=== PATIENT | female | born 1990 | race Caucasian/White ===

== ENCOUNTER 2016-05-03 12:46 | Outpatient (CLI) | payer OTHER ==
--- NOTE | 2016-05-03 13:33 | Non Stress Test Report ---
Non Stress Test Datetime Report Generated by CPN: 05/03/2016 13:32 DEMOGRAPHIC EGA NST: 40.2 INDICATION Indication for Study: Ordered by Provider MONITORING Monitor Explained: Monitor Explained; Test Explained; Patient Verbalized Understanding Time on Monitor: 05/03/2016 12:57 Time off Monitor: 05/03/2016 13:27 NST Duration: 30 NST INTERVENTIONS NST Interventions: PO Hydration; Reposition Patient Physician Notified NST: Dr. Campos BABY A: [id number] BABY A Movement : Present Contraction Frequency : none FHR Baseline : 135 Accelerations : 15X15 Variability : Marked >25bpm NST Review: Meets Criteria for Reactive NST NST Review and Verified By : Ernestine EUGENE Results: Reactive NST REPORT Report Trigger: Send Report
== END 2016-05-03 13:34 | disposition home or self-care (01) ==
LOC: LC 12:46
PROVIDERS: ATTEND Obstetrics & Gynecology
PROC: 4A1HXCZ Monitoring of Products of Conception, Cardiac Rate, External Approach (ICD-10-PCS; principal; 2016-05-03)
DX: O48.0 Post-term pregnancy (principal); Z3A.40 40 weeks gestation of pregnancy
CPT/HCPCS: 59025

== ENCOUNTER 2016-05-06 04:06 | Inpatient (IN) | payer OTHER ==
[2016-05-06] MEDS ORDERED: RINGERS SOLUTION,LACTATED 1,000 ML IV PRN (04:34)
[2016-05-06] MEDS ORDERED: MISOPROSTOL 0.2 MG TABLET ONE (04:42)
[2016-05-06] MEDS ORDERED: OXYTOCIN/NORMAL SALINE 20 UNIT/1,000 ML RTUINJ ONE (04:42)
[2016-05-06] MEDS ORDERED: LIDOCAINE 1% INJ-PF (10 MG/ML) 30 ML SDV ONE (04:42)
[2016-05-06] MEDS ORDERED: BUPIVACAINE HCL 0.25 % INJ/PF (2.5 MG/1 ML) 30 ML VIAL ONE (04:46)
[2016-05-06] MEDS ORDERED: EPHEDRINE SULFATE INJ 50 MG/1 ML AMPULE ONE (04:46)
[2016-05-06] MEDS ORDERED: FENTANYL/BUPIVACAINE/NS/PF 200 MCG/100 ML RTUINJ EPI ONE (04:46)
[2016-05-06 05:18] LABS: ABSOLUTE BASOPHILS # (AUTO) 0.1 10^3/uL (0.0-0.2); ABSOLUTE EOSINOPHILS # (AUTO) 0.1 10^3/uL (0.0-0.6); ABSOLUTE LYMPHOCYTES (AUTO) 3.5 10^3/uL (0.5-4.7); ABSOLUTE MONOCYTES (AUTO) 1.1 10^3/uL (0.1-1.4); ABSOLUTE NEUT (AUTO) 12.8 10^3/uL (1.7-8.2); BASOPHILS % (AUTO) 0.3 % (0-2); EOSINOPHILS % (AUTO) 0.4 % (0-6); HEMATOCRIT 36.9 % (36.0-47.0); HEMOGLOBIN 12.4 g/dL (12.0-15.5); HGB HCT DIFFERENCE 0.3; MEAN CORPUSCULAR HEMOGLOBIN 30.2 pg (27.0-33.4); MEAN CORPUSCULAR HGB CONC 33.5 g/dL (32.0-36.0); MEAN CORPUSCULAR VOLUME 90 fl (80-97); MONOCYTES % (AUTO) 6.4 % (3-13); RED CELL DISTRIBUTION WIDTH 13.7 % (11.5-14.0); SEGMENTED NEUTROPHILS % (AUTO) 72.9 % (42-78); WHITE BLOOD COUNT 17.5 10^3/uL (4.0-10.5)
[2016-05-06] MEDS ORDERED: MEASLES,MUMPS&RUBELLA VACC/PF 0.5 ML VIAL SUBCUT PRN (05:54)
[2016-05-06] MEDS ORDERED: PROMETHAZINE HCL 25 MG SUPP.RECT PR PRN (05:54)
[2016-05-06] MEDS ORDERED: MAGNESIUM HYDROXIDE SUSP 30 ML UDCUP PO PRN (05:54)
[2016-05-06] MEDS ORDERED: BENZOCAINE/MENTHOL AEROSOL SPRAY 56 ML TOP PRN (05:54)
[2016-05-06] MEDS ORDERED: GLYCERIN/WITCH HAZEL LEAF 1 EACH MED..PAD TP PRN (05:54)
[2016-05-06] MEDS ORDERED: PSEUDOEPHEDRINE HCL 30 MG TABLET PO PRN (05:54)
[2016-05-06] MEDS ORDERED: PROMETHAZINE HCL INJ 25 MG/1 ML VIAL IV PRN (05:54)
[2016-05-06] MEDS ORDERED: DIBUCAINE 1% OINTMENT 28 GM TP PRN (05:54)
[2016-05-06] MEDS ORDERED: NA PHOS,M-B/NA PHOS,DI-BA (ADULT) 133 ML ENEMA PR PRN (05:54)
[2016-05-06] MEDS ORDERED: ACETAMINOPHEN 650 MG SUPP.RECT PR PRN (05:54)
[2016-05-06] MEDS ORDERED: ZOLPIDEM TARTRATE 5 MG TABLET PO PRN (05:54)
[2016-05-06] MEDS ORDERED: ACETAMINOPHEN WITH CODEINE #3 TABLET PO PRN ×2 (05:54)
[2016-05-06] MEDS ORDERED: DIPHENHYDRAMINE HCL 25 MG CAPSULE PO PRN (05:54)
[2016-05-06] MEDS ORDERED: PROMETHAZINE HCL 25 MG TABLET PO PRN (05:54)
[2016-05-06] MEDS ORDERED: DIPH/PERTUSS(ACELL)/TETANUS VAC/PF 0.5 ML SYR (>=10YO) IM PRN (05:54)
[2016-05-06] MEDS ORDERED: OXYTOCIN/NORMAL SALINE 20 UNIT/1,000 ML RTUINJ IV PRN (05:54)
--- NOTE | 2016-05-06 07:42 | Admission Physical ---
Datetime Report Generated by CPN: 05/06/2016 07:41 CURRENT ADMISSION Chief Complaint: Uterine Contractions; Suspected Ruptured Membranes Indication for Induction: Not Applicable Admit Plan: Admit to Unit; Initiate Labor Protocol ALLERGIES Medication Allergies: No Medication Allergies: No Known Allergies (05/03/2016) Latex: No Latex Allergies OBSTETRICAL HISTORY EDC: 05/01/2016 00:00 : 3 Para: 1 Term: 1 SAB: 1 Livin Gestational Diabetes: No Rh Sensitization: No Incompetent Cervix: No BOY: No Infertility: No ART Treatment: No Uterine Anomaly: No IUGR: No Hx Previous C/S: No Macrosomia: No Hx Loss/Stillborn: No PIH: No Hx : No Placenta Previa/Abruption: No Depression/PP Depression: Yes PTL/PROM: No Post Hemorrhage: No Current Procedures: Ultrasound; NST Obstetrical History Comments: G1: 2012 SAB G2: 2014 no complications G3: current SEE RECORDS Alcohol: No Marijuana : No Cocaine: No Other Illicit Drugs: No Cigarettes: Never Smoker. [id number] MEDICAL HISTORY Diabetes: No Blood Transfusion: No Pulmonary Disease (Asthma, TB): No Breast Disease: No Hypertension: No Medical Office Representative Surgery: No Heart Disease: No Hosp/Surgery: Yes Autoimmune Disorder: No Anesthetic Complications: No Kidney Disease: No Abnormal Pap Smear: No Neuro/Epilepsy: No Psychiatric Disorders: No Other Medical Diseases: No Hepatitis/Liver Disease: No Significant Family History: No Varicosities/Phlebitis: No Trauma/Violence : No Thyroid Dysfunction: No Medical History Comments: depression, childbirth INFECTIOUS HISTORY Gonorrhea: No Genital Herpes: No Chlamydia: Yes Tuberculosis: No Syphilis: No Hepatitis: No HIV/AIDS Exposure: No Rash or Viral Illness: No HPV: No Infectious History Comments: Chlamydia 15 or 16 years old- treated PHYSICAL EXAM General: Normal HEENT: Normal Neurologic: Normal Thyroid: Deferred Heart: Normal Lungs: Normal Breast: Deferred Back: Normal Abdomen: Normal Genitourinary Exam: Normal Extremities: Normal DTRs: Normal Pelvic Type: Adequate Vital Signs: Reviewed; Within Normal Limits VAGINAL EXAM Dilatation: 4 Effacement: 80 Station: -2 MEMBRANES Membranes: Ruptured Amniotic Fluid Color: Clear FETUS A EGA: 40.5 Monitoring: External US FHR- Baseline: 140 Variability: Moderate 6-25bpm Accelerations: 15X15 Decelerations: None FHR Category: Category I PLANS FOR LABOR AND DELIVERY Labor and Delivery: None Pain Management: Epidural Feeding Preference: Breast Benefit of Breast Feed Discussed: Yes Circumcision: Yes INFORMED CONSENT Signature: with User ID: [email or web address]
--- NOTE | 2016-05-06 07:54 | Delivery Summary ---
Del Sum A-C Datetime Report Generated by CPN: 05/06/2016 07:54 ADMISSION DATA Chief Complaint: Uterine Contractions; Suspected Ruptured Membranes Indication for Induction: Not Applicable Admission Impression: Term, Intrauterine ; No Active Labor; Ruptured Membranes DELIVERY PERSONNEL Delivery Doctor:: Vinny Campos, DO Labor and Delivery Nurse:: Tammy Elizondo RNaccreditation manager Nurse:: Sydney Burgess RN Manager Workers Compensation:: Ana Ramirez RN Nursery Nurse:: RN Hobbs MATERNAL INFORMATION Delivery Anesthesia: None Medications After Delivery: Pitocin Bolus-Please Comment Meds After Delivery Comment: Pitocin 20 units/1000 mL bolus after placenta Estimated Blood Loss (ml): 200 Maternal Complications: Precipitous Labor (<3hrs) Provider Comments: of viable malein NATALY position Placenta delievered manually and intact with 3v cord Fundus firm LABOR SUMMARY EDC: 05/01/2016 00:00 No. Babies in Womb: 1 Attempted: No Labor Anesthesia: None LABOR INFORMATION Reason for Induction: Not Applicable Onset of Labor: 05/06/2016 04:26 Complete Dilatation: 05/06/2016 05:27 Oxytocin: N/A Group B Beta Strep: negative Antibiotics # of Doses: 0 Antibiotics Time of Last Dose: n/a Steroids Given: None Reason Steroids Not Administered: Not Applicable MEMBRANES Membranes Rupture Method: Spontaneous Rupture of Membranes: 05/06/2016 05:05 Length of Rupture (hr): 0.40 Amniotic Fluid Color: Clear Amniotic Fluid Amount: Moderate Amniotic Fluid Odor: Normal STAGES OF LABOR Stage 1 hr: 1 Stage 1 min: 1 Stage 2 hr: 0 Stage 2 min: 2 Stage 3 hr: 0 Stage 3 min: 12 Total Time in Labor hr: 1 Total Time in Labor min: 15 VAGINAL DELIVERY Episiotomy: None Laceration Extension: First Degree Laceration Type: Perineal Other Laceration: skid hsu bilaterally periurethral Laceration Repair: Yes Laceration Repair Note: repaired with 2-0 chromic in usual fashion with good hemostasis Sponge Count Correct: N/A Sharps Count Correct: N/A CSECTION DELIVERY Primary Indication: N/A Secondary Indication: N/A CSection Incidence: N/A Labor: N/A Elective: N/A CSection Incision: N/A BABY A INFORMATION Infant Delivery Date/Time: 05/06/2016 05:29 Method of Delivery: Vaginal Born in Route : No : N/A Forceps: N/A Vacuum Extraction: N/A Shoulder Dystocia : No PRESENTATION/POSITION BABY A Presentation: Cephalic Cephalic Presentation: Vertex Vertex Position: Right Occipital Anterior Breech Presentation: N/A PLACENTA INFORMATION BABY A Placenta Delivery Time : 05/06/2016 05:41 Placenta Method of Delivery: Manual Removal Placenta Status: Delivered SCORES BABY A Heart Rate 1 min: >100 bpm Resp Effort 1 min: Good Cry Reflex Irritability 1 min: Cough or Sneeze or Pulls Away Muscle Tone 1 min: Active Motion Color 1 min: Blue/Pale Resuscitation Effort 1 min: Tactile Stimulation SCORE 1 MIN: 8 Heart Rate 5 min: >100 bpm Resp Effort 5 min: Good Cry Reflex Irritability 5 min: Cough or Sneeze or Pulls Away Muscle Tone 5 min: Active Motion Color 5 min: Blue/Pale Resuscitation Effort 5 min: Tactile Stimulation SCORE 5 MIN: 8 INFORMATION BABY A Gestational Age at Delivery: 40.5 Gestational Status: Full Term- 39- 40.6 Weeks Infant Outcome : Liveborn Infant Condition : Stable Infant Sex: Male IDENTIFICATION BABY A Verification Date/Time: 05/06/2016 05:55 ID Band Number: [id number] Mother's Name Verified: Yes Infant RN Verifying Infant: K Caro RN/ C [place] RN WEIGHT/LENGTH BABY A Birthweight (gm): 3695 Weight (lb): 8 Infant Weight (oz): 2 Infant Length (in): 20.00 Length (cm): 50.80 CORD INFORMATION BABY A No. Cord Vessels: 3 Nuchal Cord : N/A Cord Blood Taken: Yes-For Eval (Mom's Blood Type - or O+) Suction: Mouth; Nose ASSESSMENT BABY A Complications: Multiple Variable Decels Physical Findings at Delivery: Within Normal Limits Physical Findings- Other: oxygen 100%, pale on assessment Infant Respirations: Appears Normal Skin to Skin: Yes Skin to Skin Time (min): 30 Art Display Maker/ALS Called : No Infant Care By: Domenic Elizondo RN/ Holley Burgess RN Transferred To: Remains with Mother SIGNATURES Signature: with User ID: [email or web address]
--- NOTE | 2016-05-06 08:00 | L&D Flow Sheet ---
LD Flowsheet Datetime Report Generated by CPN: 05/06/2016 08:00 Datetime: 05/06/2016 06:30 Pain Presence: None/Denies (Tammy Elizondo, RN) Datetime: 05/06/2016 05:58 NBP Sys/Marilin/Mean (mmHg): 124 (QS system process) : 87 (QS system process) : 101 (QS system process) Pulse: 97 (QS system process) Respirations: 15 (Tammy Caro, RN) Temperature (F): 97.9 (Tammy Simonsl, RN) Temperature (C): 36.6 (QS system process) Temperature Route: Oral (Tammy Caro, RN) Datetime: 05/06/2016 05:45 Stage of : Recovery (Sydney Margaann, RN) Datetime: 05/06/2016 05:40 Stage of : Recovery (Sydney Sabinasmann, RN) Datetime: 05/06/2016 05:31 Stage of : Recovery (Tammycruz Elizondo, RN) Datetime: 05/06/2016 05:29 Monitor Mode: External; Palpation (Allie Bj, RN) Quality: Strong (Allie Bj, RN) Resting Tone (Palpate): Relaxed (Allie Bj, RN) Contraction Comments: unable to determine frequency and duration (Allie Bj, RN) Monitor Mode: Internal Scalp Electrode (Allie Bj, RN) FHR Baseline Rate : 145 (Allie Bj, RN) Variability: Moderate 6-25 bpm (Allie Bj, RN) Accelerations: None (Allie Bj, RN) Decelerations: Variable (Allie Bj, RN) Comments: RN remains at bedside adjusting u/s continously monitoring FHT (Allie Bj, RN) Datetime: 05/06/2016 05:27 Dilatation (cm): 10.0 (Sydney Burgess RN) Effacement (%): 100 (Sydney Burgess RN) Station: 2 (Sydney Burgess RN) Exam by: Dr Campos (Sydney Burgess RN) Pushing: Coached on Pushing; Urge to Push (Sydney Burgess RN) Pushing Position: Pushing with Contractions (Sydney Burgess RN) Pushing Progress: Descent with Pushing; Perineal Bulging; Rectal Bulging; Presenting Part Visible (Sydney Burgess RN) Datetime: 05/06/2016 05:26 Communication Comments: Nursery called to bedside for delivery (Allie Bj, RN) Datetime: 05/06/2016 05:23 Communication Comments: Dr Campos at bedside (Tammy Elizondo, RN) Datetime: 05/06/2016 05:20 Actions for Decelerations: Hands and Knees (Tammy Elizondo RN) Dilatation (cm): 8.0 (Sydney Burgess RN) Effacement (%): 100 (Sydney Burgess RN) Station: 2 (Sydney Burgess RN) Exam by: VERONCIA Elizondo (Sydney Burgess RN) Patient Position/Activity: Hands-Knees (Tammy Elizondo RN) Pushing: Urge to Push; Involuntary Pushing (Tammy Elizondo RN) Datetime: 05/06/2016 05:15 Monitor Mode: External; Palpation (Allie Lorenzo RN) Frequency (min): 1.5-2.5 (Allie Lorenzo RN) Quality: Strong (Allie Lorenzo RN) Duration (sec): 50-60 (Allie Lorenzo RN) Duration Criteria: Less than Two 120 Second Contractions (Allie Lorenzo RN) Pattern: Normal: <= 5 Contractions in 10 Minutes (Allie Lorenzo RN) Resting Tone (Palpate): Relaxed (Allie Lorenzo RN) Monitor Interventions for FHR: FSE Applied (Sydney Burgess RN) Decelerations: Late; Variable; Prolonged (Tammy Elizondo RN) Actions for Decelerations: Side to Side; Oxygen Applied; IV Bolus; Sterile Vaginal Exam; Provider Reviewed Strip; Provider Notified (Sydney Burgess RN) Actions for Decelerations: Hands and Knees; Oxygen Applied; IV Bolus; Provider Reviewed Strip (Sydney Burgess RN) Comments: VERONICA meadows remains at bedside adjusting u/s continously monitoring FHT (Allie Lorenzo, VERONICA) Dilatation (cm): 8.0 (Sydney Burgess RN) Exam by: Dr Campos (Sydney Burgess RN) Patient Position/Activity: Hands-Knees (Sydney Burgess RN) Datetime: 05/06/2016 05:14 Actions for Decelerations: Provider Reviewed Strip (Tammy Elizondo RN) Actions for Decelerations: Side to Side (Sydney Burgess RN) Patient Position/Activity: Right Lateral (Sydney Burgess RN) Communication: Provider at Bedside (Tammy Elizondo RN) Communication Comments: Dr Toney at bedside, updated on pt progress. Will update Dr Toney if pt/ are able to tolerate epidural procedure (Tammy Elizondo RN) Communication Comments: Dr Campos at bedside (Tammy Elizondo RN) Datetime: 05/06/2016 05:12 Actions for Decelerations: Side to Side (Sydney Sabinasmann, RN) Datetime: 05/06/2016 05:11 Pulse: 89 (QS system process) SpO2 (%): 98 (QS system process) Communication Comments: Dr. Campos at bedside (Allie Bj, RN) Datetime: 05/06/2016 05:09 Actions for Decelerations: Side to Side (Tammy Elizondo RN) Comments: FHR auscultated in 70s-90s. RN remains at bedside adjusting u/s (Tammy Elizondo RN) Communication Comments: Dr. Campos called to bedside (Allie Bj, RN) Datetime: 05/06/2016 05:07 Comments: VERONICA Elizondo remains at bedside adjusting u/s (Allie Lorenzo, VERONICA) Datetime: 05/06/2016 05:06 Dilatation (cm): 7.0 (Tammy Elizondo RN) Exam by: RN Caro (Tammy Elizondo RN) Datetime: 05/06/2016 05:05 Membrane Status: Ruptured (Tammy Elizondo RN) Membranes Ruptured Date/Time: 05/06/2016 05:05 (Tammy Elizondo RN) Membranes Rupture Method: Spontaneous (Tammy Elizondo RN) Amniotic Fluid Color: Clear (Tammy Caro, RN) Amniotic Fluid Amount: Moderate (Tammy Crao, RN) Amniotic Fluid Odor: Normal (Tammy Caro, RN) Membrane Comments: bloody show mixed in fluid (Tammy Steinersel, RN) Datetime: 05/06/2016 05:04 Patient Position/Activity: Right Tilt (Tammy Steinersel, RN) Datetime: 05/06/2016 05:03 IV/Blood Work: Labs Drawn (Tammy Steinersel, RN) Datetime: 05/06/2016 05:02 Anesthesia Comments: Dr. Toney aware of epidural request, MD in route, IVF bolusing (Sydney Burgess, RN) Datetime: 05/06/2016 05:01 Comments: VERONICA Angelita Elizondo remains at bedside adjusting u/s continously monitoring FHT (Allie Bj, RN) Datetime: 05/06/2016 05:00 Monitor Mode: External; Palpation (Allie Bj, RN) Frequency (min): 1.5-2 (Allie Bj, RN) Quality: Strong (Allie Bj, RN) Duration (sec): 30-70 (Allie Bj, RN) Duration Criteria: Less than Two 120 Second Contractions (Allie Bj, RN) Pattern: Normal: <= 5 Contractions in 10 Minutes (Allie Bj, RN) Resting Tone (Palpate): Relaxed (Allie Bj, RN) Monitor Mode: External US (Allie Bj, RN) FHR Baseline Rate : 155 (Allie Bj, RN) Variability: Moderate 6-25 bpm (Allie Bj, RN) Accelerations: None (Allie Bj, RN) Decelerations: Variable (Allie Bj, RN) Comments: RN KDavid SteinerCaro remains at bedside adjusting u/s continously monitoring FHT (Allie Bj, RN) Datetime: 05/06/2016 04:59 Comments: RN K. Caro at bedside adjusting u/s coninuously monitoring FHT (Allie Bj, RN) Datetime: 05/06/2016 04:57 Patient Position/Activity: Standing (Tammy Caro, RN) Patient Care Comments: Pt standing, swaying with ctx (Tammy Caro, RN) Datetime: 05/06/2016 04:54 IV/Blood Work: IV Started; IV Bolus Started (Tammy Caro, RN) Patient Care Comments: 18 g started R forearm third attempt pt tolerated well (Tammy Caro, RN) Datetime: 05/06/2016 04:51 Procedures: Consents Signed (Tammy Caro, RN) Datetime: 05/06/2016 04:49 NBP Sys/Marilin/Mean (mmHg): 123 (QS system process) : 79 (QS system process) : 95 (QS system process) Pulse: 82 (QS system process) Datetime: 05/06/2016 04:45 Monitor Mode: External; Palpation (Allie Bj, RN) Frequency (min): 1.5-5 (Allie Bj, RN) Quality: Moderate to Strong (Allie Bj, RN) Duration (sec): 40-80 (Allie Bj, RN) Duration Criteria: Less than Two 120 Second Contractions (Allie Bj, RN) Pattern: Normal: <= 5 Contractions in 10 Minutes (Allie Bj, RN) Resting Tone (Palpate): Relaxed (Allie Bj, RN) Monitor Mode: External US (Allie Bj, RN) FHR Baseline Rate : 145 (Allie Bj, RN) Variability: Moderate 6-25 bpm (Allie Bj, RN) Accelerations: None (Allie Bj, RN) Decelerations: Early (Allie Bj, RN) Datetime: 05/06/2016 04:28 Communication Comments: Dr. Campos notified of SVE and assessment. Orders received for admission. (Allie Bj, RN) Datetime: 05/06/2016 04:26 Dilatation (cm): 4.5 (Allie Lorenzo RN) Exam by: Angelita Elizondo RN (Allie Lorenzo RN)
[2016-05-06] MEDS: IBUPROFEN 800 MG TABLET PO SCH ×3 (08:30→21:39)
[2016-05-06] MEDS: SENNOSIDES/DOCUSATE 8.6-50 MG 1 EACH TABLET PO SCH (09:32)
[2016-05-06] MEDS: PRENATAL VITAMIN W-O CA NO5/FE FUMARATE/FA CAPSULE PO SCH (09:32)
[2016-05-06] MEDS: FERROUS SULFATE 325 MG TABLET PO SCH ×2 (09:32→17:20)
[2016-05-06] MEDS: DOCUSATE SODIUM 100 MG CAPSULE PO SCH ×2 (09:32→17:20)
[2016-05-06] MEDS: FAMOTIDINE 20 MG TABLET PO SCH ×2 (09:33→21:39)
[2016-05-06 14:53] LABS: APPEARANCE,URINE CLEAR; BILIRUBIN,URINE NEGATIVE (NEGATIVE); GLUCOSE, URINE NEGATIVE (NEGATIVE); KETONES,URINE NEGATIVE (NEGATIVE); LEUKOCYTE ESTERASE,URINE TRACE (NEGATIVE); NITRITE,URINE NEGATIVE (NEGATIVE); PROTEIN,URINE NEGATIVE (NEGATIVE); URINE SPECIFIC GRAVITY 1.004; UROBILINOGEN,URINE NEGATIVE mg/dL (<2.0)
[2016-05-06 15:16] LABS: URINE BARBITURATES SCREEN NEGATIVE; URINE METHADONE SCREEN NEGATIVE; URINE OPIATES LOW NEGATIVE; URINE PHENCYCLIDINE SCREEN NEGATIVE
--- NOTE | 2016-05-06 19:01 | L&D Flow Sheet ---
LD Flowsheet Datetime Report Generated by CPN: 05/06/2016 19:00 Datetime: 05/06/2016 07:15 Stage of : Recovery (Karen Hassan RN)
[2016-05-07] MEDS: IBUPROFEN 800 MG TABLET PO SCH ×3 (05:13→21:10)
--- NOTE | 2016-05-07 06:01 | L&D Current Admission ---
Current Admit Datetime Report Generated by CPN: 05/07/2016 06:00 ADMISSION INFORMATION Current Admit Date/Time: 05/06/2016 04:15 (05/06/2016 04:15:Tammy Elizondo RN) Reason for Admission: Onset of Labor (05/06/2016 04:15:Tammy Elizondo RN) Chief Complaint: Contractions (05/06/2016 04:15:Tammy Elizondo RN) Medications During : Vitamin (05/06/2016 04:15:Tammy Elizondo RN) EGA per Dates: 40.5 (05/06/2016 04:15:QS system process) Method of Arrival: Wheelchair (05/06/2016 04:15:Tammy Elizondo RN) Admitted From: Home (05/06/2016 04:15:Tammy Elizondo RN) Reason for Induction: Not Applicable (05/06/2016 04:15:Tammy Elizondo RN) Records Available: Yes (05/06/2016 04:15:Tammy Elizondo RN) General Admission Information: Reviewed; Updated; Confirmed (05/06/2016 04:15:Tammy Elizondo RN) General Admission Reviewed By: Domenic Elizondo RN (05/06/2016 04:15:Tammy Elizondo RN) BELONGINGS/ADVANCED DIRECTIVES Other Belongings: See [facility] belongings form (05/06/2016 04:15:Tammy Elizondo RN) Advance Direct for Healthcare: No, but Requests Information (05/06/2016 04:15:Tammy Elizondo RN) Durable Power of Sorter Pricer: No (05/06/2016 04:15:Tammy Elizondo RN) Living Will: No (05/06/2016 04:15:Tammy Elizondo RN) Organ Donor: Undecided (05/06/2016 04:15:Tammy Elizondo RN) Pt Rights Information Given: Yes (05/06/2016 04:15:Tammy Elizondo RN) Pt Understands Pt Rights: Yes (05/06/2016 04:15:Tammy Elizondo RN) LEARNING ASSESSMENT Knowledge Level: Understands L_D Process; Understands Care Activities (05/06/2016 04:15:Tammy Elizondo RN) Barriers to Learning: Emotional State; Pain (05/06/2016 04:15:Tammy Elizondo RN) Learning Readiness: Motivated (05/06/2016 04:15:Tammy Elizondo RN) Learns Best By: 1 to 1 Instruction (05/06/2016 04:15:Tammy Elizondo RN) Learning Needs: Labor and Delivery Process; Pain Management; Symptoms to Report; Treatment Plan; Medication; Diagnosis; Nutrition; Equipment; Care (05/06/2016 04:15:Tammy Elizondo RN) DOMESTIC VIOLANCE SCREENING Reason Unable to Complete Screen: No Opportunity to Talk Privately (05/06/2016 04:15:Tammy Elizondo RN) NUTRITIONAL/FUNCTIONAL SCREENING Problem with Appetite >5 Days: No (05/06/2016 04:15:Tammy Elizondo RN) Chew/Swallow Difficulties: No (05/06/2016 04:15:Tammy Elizondo RN) Inappropriate Wt Gain/Loss: No (05/06/2016 04:15:Tammy Elizondo RN) Presence Skin Breakdown/Ulcer: No (05/06/2016 04:15:Tammy Elizondo RN) Special Diet: No (05/06/2016 04:15:Tammy Elizondo RN) Pt Requests Access Services Representative Visit: No (05/06/2016 04:15:Tammy Elizondo RN) Hx of Any of the Following?: N/A (05/06/2016 04:15:Tammy Elizondo RN) New Diagnosis of: N/A (05/06/2016 04:15:Tammy Elizondo RN) Requires Assist w/Ambulation: No (05/06/2016 04:15:Tammy Eliozndo RN) Uses Assist Device to Ambulate: No (05/06/2016 04:15:Tammy Elizondo RN) Pt Requires Help w/ADL's: No (05/06/2016 04:15:Tammy Elizondo RN)
--- NOTE | 2016-05-07 06:01 | L&D General Admission ---
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[employer] [facility] (05/03/2016 12:56:Karen Hassan RN) Height (in): 67 (05/06/2016 08:32:QS system process) ALLERGIES Medication Allergy: No (05/03/2016 12:56:Karen Hassan RN) Medication Allergies: No Known Allergies (05/03/2016) (05/03/2016 12:57:QS system process) Latex Allergy: No Latex Allergies (05/03/2016 12:56:Karen Hassan RN) COMMUNICATION Primary Language: Trinidadian (05/03/2016 12:56:Karen Hassan RN) Trinidadian Communication Ability: Speaks Trinidadian; Reads Trinidadian (05/03/2016 12:56:Allie Lorenzo RN) Communication Barrier(s): None (05/03/2016 12:56:Allie Lorenzo RN) DEMOGRAPHICS Address: [address] [place] [id number] (05/03/2016 12:46:QS system process) Zipcode: [id number] (05/03/2016 12:46:QS system process) Home (05/03/2016 12:46:QS system process) SSN: [id number] (05/03/2016 12:46:QS system process) Next of Kin Name: LIZY QUICK (05/03/2016 12:46:QS system process) Next of Kin (05/03/2016 12:46:QS system process) Next of Kin Relationship: SPO (05/03/2016 12:46:QS system process) Date of : 1990 (05/03/2016 12:46:QS system process) Marital Status: (05/03/2016 12:46:QS system process) Sex: Female (05/03/2016 12:46:QS system process) Race: (05/03/2016 12:46:QS system process) Ethnicity: Non- or (05/03/2016 12:46:QS system process) Restorationist: Other (05/03/2016 12:46:QS system process) DRUG AND ALCOHOL USE Alcohol: No (05/03/2016 12:56:Karen Hassan RN) Cigarettes: Never Smoker. [id number] (05/03/2016 12:56:Karen Hassan RN) Marijuana: No (05/03/2016 12:56:Karen Hassan RN) Cocaine: No (05/03/2016 12:56:Karen Hassan RN) Other Illicit Drugs: No (05/03/2016 12:56:Karen Hassan RN) VACCINE HISTORY Influenza Vaccine: No (05/03/2016 12:56:Karen Hassan RN) Pneumococcal Vaccine: No (05/03/2016 12:56:Karen Hassan RN) Tetanus Vaccine: No (05/03/2016 12:56:Karen Hassan RN) Tdap Vaccine: No (05/03/2016 12:56:Karen Hassan RN) Hepatitis B Vaccine: No (05/03/2016 12:56:Karen Hassan RN) Burning Machine Operator: [facility] (05/03/2016 12:56:Karen Hassan RN) Feeding Preference: Breast (05/03/2016 12:56:Karen Hassan RN) Benefit of Breast Feed Discussed: Yes (05/03/2016 12:56:Karen Hassan RN) Circumcision: Yes (05/03/2016 12:56:Karen Hassan RN) Classes Attended: No (05/03/2016 12:56:Karen Hassan RN) Tubal Ligation: No (05/03/2016 12:56:Karen Hassan RN) Tubal Authorization Signed: N/A (05/03/2016 12:56:Karen Hassan RN) Consent: N/A (05/03/2016 12:56:Karen Hassan RN) Pain Management Plans: Epidural (05/03/2016 12:56:Karen Hassan RN) Plans for Labor and Delivery: None (05/03/2016 12:56:Karen Hassan RN) Support Person: Lizy Quick (05/03/2016 12:56:Karen Hassan RN) Support Person Relationship: (05/03/2016 12:56:Karen Hassan RN) Cultural/Spritual Practice: No (05/03/2016 12:56:Karen Hassan RN) Spir/Cult Dietary Needs: No (05/03/2016 12:56:Karen Hassan RN) LIVING SITUATION/DISCHARGE PLAN Living Arrangements: House (05/03/2016 12:56:Karen Hassan RN) Adequate Access to:: Electric; Heat; Refrigeration; Plumbing/Running water; Phone; Transportation (05/03/2016 12:56:Karen Hassan RN) WIC Program: Yes (05/03/2016 12:56:Karen Hassan RN) Discharge Filler Shredder Machine Person: FONitza (05/03/2016 12:56:Karen Hassan RN) Person to Help after Discharge: FOB (05/03/2016 12:56:Karen Hassan RN) Currently Using Commun Resources: No (05/03/2016 12:56:Karen Hassan RN) Outside Agency/Senior Instructional Designer: No (05/03/2016 12:56:Karen Hassan RN) Car Seat for Discharge: Yes (05/03/2016 12:56:Karen Hassan RN) Adoption Requested: No (05/03/2016 12:56:Karen Hassan RN) Pt Contact w/ Post : N/A (05/03/2016 12:56:Karen Hassan RN) LABS Blood Type: O Negative (05/03/2016 12:56:Allie Lorenzo RN) Antibody Screen: negative (05/03/2016 12:56:Tammy Elizondo RN) Hemoglobin: 12.4 (05/06/2016 05:06:QS system process) Hematocrit: 36.9 (05/06/2016 05:06:QS system process) MCV: 90 (05/06/2016 05:06:QS system process) Group Beta Strep: negative (05/03/2016 12:56:Allie Lorenzo RN) Gonorrhea: Negative (05/03/2016 12:56:Allie Lorenzo RN) Chlamydia: Negative (05/03/2016 12:56:Allie Lorenzo RN) RPR/VDRL: Nonreactive (05/03/2016 12:56:Allie Lorenzo RN) HIV Exposure Test: Negative (05/03/2016 12:56:Allie Lorenzo RN) Hepatitis B: Negative (05/03/2016 12:56:Allie Lorenzo RN) Rubella: Immune (05/03/2016 12:56:Allie Lorenzo RN) OB/PREVIOUS HISTORY Previous Procedures: Ultrasound; NST (05/03/2016 12:56:Karen Hassan RN) Current Procedures: Ultrasound; NST (05/03/2016 12:56:Karen Hassan RN) History of Previous : No (05/03/2016 12:56:Karen Hassan RN) History of Gestational Diabetes: No (05/03/2016 12:56:Karen Hassan RN) History of PIH: No (05/03/2016 12:56:Karen Hassan RN) History of Incompetent Cervix: No (05/03/2016 12:56:Karen Hassan RN) History of Placenta Previa/Abrup: No (05/03/2016 12:56:Karen Hassan RN) History of Macrosomia: No (05/03/2016 12:56:Karen Hassan RN) History of IUGR: No (05/03/2016 12:56:Karen Hassan RN) History of Hemorrhage: No (05/03/2016 12:56:Karen Hassan RN) History of Loss/Stillborn: No (05/03/2016 12:56:Karen Hassan RN) History of : No (05/03/2016 12:56:Karen Hassan RN) History of D (Rh) Sensitization: No (05/03/2016 12:56:Karen Hassan RN) History Recurrent Loss/Stillborn: No (05/03/2016 12:56:Karen Hassan RN) History Depression/PP Depression: Yes (05/03/2016 12:56:Karen Hassan RN) History of Uterine Anomaly/BOY: No (05/03/2016 12:56:Karen Hassan RN) History of Infertility: No (05/03/2016 12:56:Karen Hassan RN) History of ART Treatment: No (05/03/2016 12:56:Karen Hassan RN) History of BOY: No (05/03/2016 12:56:Karen Hassan RN) Comments Obstetrical History: G1: 2012 SAB G2: 2014 no complications G3: current (05/03/2016 12:56:Karen Hassan RN) MEDICAL HISTORY Med Hx Diabetes: No (05/03/2016 12:56:Karen Hassan RN) Med Hx Hypertension: No (05/03/2016 12:56:Karen Hassan RN) Med Hx Heart Disease: No (05/03/2016 12:56:Karen Hassan RN) Med Hx Autoimmune Disorder: No (05/03/2016 12:56:Karen Hassan RN) Med Hx Kidney Disease/UTI: No (05/03/2016 12:56:Karen Hassan RN) Med Hx Neurologic/Epilepsy: No (05/03/2016 12:56:Karen Hassan RN) Med Hx Psychiatric Disorders: No (05/03/2016 12:56:Karen Hassan RN) Med Hx Hepatitis/Liver Disease: No (05/03/2016 12:56:Karen Hassan RN) Med Hx Varicosities/Phlebitis: No (05/03/2016 12:56:Karen Hassan RN) Med Hx Thyroid Dysfunction: No (05/03/2016 12:56:Karen Hassan RN) Med Hx Trauma/Violence: No (05/03/2016 12:56:Karen Hassan RN) Med Hx Blood Transfusion: No (05/03/2016 12:56:Karen Hassan RN) Med Hx Pulmonary (Asthma,TB): No (05/03/2016 12:56:Karen Hassan RN) Med Hx Breast: No (05/03/2016 12:56:Karen Hassan RN) Med Hx FINANCIAL ACCOUNTANT Surgery: No (05/03/2016 12:56:Karen Hassan RN) Med Hx Hospitalization/Surgery: Yes (05/03/2016 12:56:Karen Hassan RN) Med Hx Anesthetic Complications: No (05/03/2016 12:56:Karen Hassan RN) Med Hx Abnormal Pap Smear: No (05/03/2016 12:56:Karen Hassan RN) Other Medical Diseases: No (05/03/2016 12:56:Karen Hassan RN) Med Hx Significant Family Hx: No (05/03/2016 12:56:Karen Hassan RN) Details of Med/Surg Hx: depression, childbirth (05/03/2016 12:56:Karen Hassan RN) INFECTIOUS HISTORY Inf Hx Gonorrhea: No (05/03/2016 12:56:Karen Hassan RN) Inf Hx Chlamydia: Yes (05/03/2016 12:56:Karen Hassan RN) Inf Hx Syphilis: No (05/03/2016 12:56:Karen Hassan RN) Inf Hx HIV/AIDS: No (05/03/2016 12:56:Karen Hassan RN) Inf Hx Human Papilloma Virus: No (05/03/2016 12:56:Karen Hassan RN) Inf Hx Pt/Partner Genital Herpes: No (05/03/2016 12:56:Karen Hassan RN) Inf Hx Tuberculosis/Exposure: No (05/03/2016 12:56:Karen Hassan RN) Inf Hx Hepatitis B,C: No (05/03/2016 12:56:Karen Hassan RN) Inf Hx Rash or Viral Illness: No (05/03/2016 12:56:Karen Hassan RN) Details of Infectious Hx: Chlamydia 16 or 17 years old- treated (05/03/2016 12:56:Karen Hassan RN) GENETIC HISTORY Gen Hx Age >=35 at ZEN: No (05/03/2016 12:56:Karen Hassan RN) Gen Hx Thalassemia: No (05/03/2016 12:56:Karen Hassan RN) Gen Hx Congenital Heart Defect: No (05/03/2016 12:56:Karen Hassan RN) Gen Hx Neural Tube Defect: No (05/03/2016 12:56:Karen Hassan RN) Gen Hx Down's Syndrome: No (05/03/2016 12:56:Karen Hassan RN) Gen Hx Sohail-Sachs: No (05/03/2016 12:56:Karen Hassan RN) Gen Hx Noni: No (05/03/2016 12:56:Karen Hassan RN) Gen Hx Familial Dysautonomia: No (05/03/2016 12:56:Karen Hassan RN) Gen Hx Sickle Cell Disease/Trait: No (05/03/2016 12:56:Karen Hassan RN) Gen Hx Hemophilia/Blood Disorder: No (05/03/2016 12:56:Karen Hassan RN) Gen Hx Muscular Dystrophy: No (05/03/2016 12:56:Karen Hassan RN) Gen Hx Cystic Fibrosis: No (05/03/2016 12:56:Karen Hassan RN) Gen Hx Huntingtons Chorea: No (05/03/2016 12:56:Karen Hassan RN) Gen Hx Mental Retardation/Autism: Yes (05/03/2016 12:56:Karen Hassan RN) Gen Hx Tested for Fragile X: No (05/03/2016 12:56:Karen Hassan RN) Gen Hx Other Inher/Chromosomal: No (05/03/2016 12:56:Karen Hassan RN) Gen Hx Maternal Metabolic DO: No (05/03/2016 12:56:Karen Hassan RN) Gen Hx Pt Father or FOB Defect: No (05/03/2016 12:56:Karen Hassan RN) Gen Hx Other Genetic History: No (05/03/2016 12:56:Karen Hassan RN) Gen Hx Drugs/Meds since LMP: Yes (05/03/2016 12:56:Karen Hassan RN) Gen Hx Medications: PNV (05/03/2016 12:56:Karen Hassan RN) Details of Genetic History: FOB brother autistic, maternal grandfather's brother autistic (05/03/2016 12:56:Karen Hassan RN)
--- NOTE | 2016-05-07 06:16 | L&D Care Plan ---
LD CARE PLANS Datetime Report Generated by TERRENCE: 05/07/2016 06:15 Datetime: 05/06/2016 04:36 State: Risk For (Allie Lorenzo RN) Related To: Labor and Delivery Process; Surgical Procedure; Complication(s) of ; Treatment and Procedures; Post (Allie Lorenzo RN) Goal(s): Patients Pain will be Assessed and Managed; Patient will Verbalize Adequate Relief of Pain or the Ability to Lane with Current Pain (Allie Lorenzo RN) Interventions: Assess Pain Severity on Scale of 0 (None) to 5 (Severe); Assess Type, Location and Intensity of Pain Each Time Client Reports Discomfort and Notify Provider if Unusal Pain Develops; Encourage Proper Breathing and Relaxation Techniques; Offer Alternatives Such as Repositioning, Calm Environment, Massages, Diversional Activities, Ice Pack, Splinting, and Ambulation; Administer Analgesics as Ordered; Assist with Epidural Placement as Appropriate; Evaluate Therapeutic Effectiveness of Medication and Treatments (Allie Lorenzo RN) Outcome: Patient will Report Absence or Relief of Pain Consistent with Established Pain Goal (Allie Lorenzo RN) Status: Ongoing (Allie Lorenzo RN) Outcome: Patient will have a Decrease in Signs and Symptoms of Discomfort (Allie Lorenzo RN) Status: Ongoing (Allie Lorenzo RN) Outcome: Pain will be Controlled During Procedures (Allie Lorenzo RN) Status: Ongoing (Allie Lorenzo RN) State: Risk For (Allie Lorenzo RN) Related To: Labor and Delivery Process; Surgical Procedure; Fear of Unknown; Medical Interventions (Allie Lorenzo RN) Goal(s): Patient will have Decreased Anxiety and be able to Function at Acceptable Levels (Allie Lorenzo RN) Interventions: Assess Verbal and Nonverbal Behavioral Indicators of Anxiety; Assist Patient to Identify and Verbalize Symptoms of Anxiety; Identify and Demonstrate Techniques to Control Anxiety; Assist Patient with Coping Mechanisms to Manage Anxiety; Provide Theraputic Touch for the Patient; Explain to Patient, Using a Calm Reassuring Approach and Nonmedical Terms, All Activities, Procedures, and Concerns; Instruct Patient and Family about Post Discharge Care, Limitations, Symptoms to Report and Resources Available (Allie Lorenzo RN) Outcome: Patient will Identify, Verbalize and Demonstrate Techniques to Control Anxiety (Allie Lorenzo RN) Status: Ongoing (Allie Lorenzo RN) Outcome: Patient's Posture, Facial Expressions, Gestures and Activity Level will Reflect Decreased Anxiety (Allie Lorenzo RN) Status: Ongoing (Allie Lorenzo RN) Outcome: Patient will Verbalize a Sense of Control and/or Acceptance of the Situation (Allie Lorenzo RN) Status: Ongoing (Allie Lorenzo RN) Outcome: Patient will Identify and Utilize Support Person (Allie Lorenzo RN) Status: Ongoing (Allie Lorenzo RN) State: Risk For (Allie Lorenzo RN) Related To: Labor and Delivery Process; Surgical Procedures; Treatment and Procedures; Feeding and Infant Care (Allie Lorenzo RN) Goal(s): Patient will Accurately Verbalize Understanding of Plan of Care and Treatment; Patient and Family will Accurately Verbalize Understanding of the Disease Process (Allie Lorenzo RN) Interventions: Assess Motivation and Willingness of Patient/Family to Learn; Assess Preferred Learning Mode: One to One Instruction, Reading, Videos, Group Discussion or Demonstration; Assess Barriers to Learning: Pain, Emotional State, Language Barrier, Cognitive Impairment, Visual or Hearing Deficits; Assess Patient and Family Knowledge of Disease Process, Medications and Treatment; Discuss Therapy and/or Treatment Options, Describe Rationale Behind Management, Therapy and Treatment Recommendations; Instruct Patient and Family on Signs and Symptoms to Report; Instruct Patient and Family on Medication Effects and Side Effects; Provide Appropriate and Timely Education Using Multiple Techniques; Provide Patient and Family with Support Group Information and Resources; Give Clear and Thorough Explanations and Demonstrations (Allie Lorenzo RN) Outcome: Patient and Family will Verbalize Understanding of Condition, Treatment and Signs and Symptoms to Report (Allie Lorenzo RN) Status: Ongoing (Allie Lorenzo RN) Outcome: Patient will Identify Perceived Learning Needs and Express Motivation to Learn (Allie Lorenzo RN) Status: Ongoing (Allie Lorenzo RN) Outcome: Patient will Verbalize Understanding of Desired Content, and/or Performs Desired Skill Prior to Discharge (Allie Lorenzo RN) Status: Ongoing (Allie Lorenzo RN) State: Risk For (Allie Lorenzo RN) Related To: Surgical Procedures; Prolonged Labor or Induction; Premature/Prolonged Rupture of Membranes; Invasive Procedures (Allie Lorenzo RN) Goal(s): The Patient will be Free of Infection, Vital Signs Stable and Lab Work within Normal Parameters (Allie Lorenzo RN) Interventions: Instruct and Reinforce Proper Handwashing, Hygiene, and Care Techniques to Patient and Family; Monitor Vital Signs; Monitor Patient for the Following Signs of Infection: Fever, Abdominal Tenderness, Unusual Discharge; Monitor Aminiotic Fluid, Urine and Lochia for Color and Odor; Observe Wounds, Incisions and Invasive Line Sites for Redness, Drainage and Edema; Assess IV Sites per Hospital Policy; Monitor Lab and Test Results and Notify Provider of Abnormal Findings; Assess Nutritional Status and Promote Good Nutrition (Allie Lorenzo RN) Outcome: Patient will Remain Free of Infection (Allie Lorenzo RN) Status: Ongoing (lAlie Lorenzo RN) Outcome: Infection will be Recognized Early to Allow for Prompt Treatment (Allie Lorenzo RN) Status: Ongoing (Allie Lorenzo RN) Outcome: Patient will have Vital Signs Within Expected Range (Allie Lorenzo RN) Status: Ongoing (Allie Lorenzo RN) State: Risk For (Allie Lorenzo RN) Related To: Surgical Procedures; Prolonged Labor or Induction; Hemorrhage; Anesthesia (Allie Lorenzo RN) Goal(s): Patient will Achieve and Maintain a Balanced Fluid Volume Status; Hemodynamically Stable (Allie Lorenzo RN) Interventions: Monitor Vital Signs; Auscultate Breath Sounds; Monitor Patient for Skin Turgor, Mucous Membranes, Dry Skin, Weakness, Headaches and Confusion; Provide Oral Fluids as Ordered; Initiate and Maintain Intravenous Fluids as Ordered; Monitor Intake and Output as Indicated Per Patient Status; Accurately Measure Blood Loss; Monitor Lab and Test Results as Obtained and Notify Provider of Abnormal Findings; Monitor Patient's Weight (Allie Lorenzo RN) Outcome: Patient will have Clear Lung Sounds (Allie Lorenzo RN) Status: Ongoing (Allie Lorenzo RN) Outcome: Patient will have Vital Signs within Expected Range (Allie Lorenzo RN) Status: Ongoing (Allie Lorenzo RN) Outcome: Urine Output will be within Expected Range (Allie Lorenzo RN) Status: Ongoing (Allie Lorenzo RN) Outcome: Patient will have Minimal Generalized or Upper Extremity Edema (Allie Lorenzo RN) Status: Ongoing (Allie Lorenzo RN) State: Risk For (Allie Lorenzo RN) Related To: Labor and Delivery Process; Anesthesia; Risk to Status; Uteroplacental Perfusion; Hemorrhage, Placenta Previa and or Placental Abruption (Allie Lorenzo RN) Goal(s): Patient will Remain Free from Injury (Allie Lorenzo RN) Interventions: Monitoring as per Hospital Protocol; Assess Neurological Status; Perform Risk Assessment of Patients with Induction and ; Perform Fall Risk Assessment and Prevention per Hospital Protocol; Perform DVT Risk Assessment and Prophylaxis per Hospital Protocol; Ensure that Oxygen, Suction, and Resuscitation Medications and Equipment are Readily Available; Confirm Patient ID Prior to Procedure(s) and Medication Administration per Hospital Policy (Allie Lorenzo RN) Outcome: Successful Fall Risk Prevention (Allie Lorenzo RN) Status: Ongoing (Allie Lorenzo RN) Outcome: Patient will Deliver Infant without Adverse Sequela (Allie Lorenzo RN) Status: Ongoing (Allie Lorenzo RN) Outcome: Patient's Neurological Status will Remain Stable (Allie Lorenzo RN) Status: Ongoing (Allie Lorenzo RN) State: Risk For (Allie Lorenzo RN) Related To: Vaginal Delivery; Surgical Procedures; Invasive Procedures (Allie Lorenzo RN) Goal(s): Patient will Maintain Optimal Skin Integrity, Free of Breakdown, Injury or Infection (Allie Lorenzo RN) Interventions: Complete Screening for Pressure Ulcer Risk and Initiate Protocol per Hospital Policy; Monitor Site of Skin Impairment for Color Changes, Redness, Swelling, Warmth, Pain or Other Signs of Infection; Encourage and Assist with Position Changes; Monitor Patient's Mobility Status; Provide Adequate Nutrition and Fluids; Teach Patient Appropriate Hygienic Care; Teach Patient/Family Skin Care Management (Allie Lorenzo RN) Outcome: Patient will not have Evidence of Injury Such as Skin Breakdown, Scrapes, Cuts, or Bruising (Allie Lorenzo RN) Status: Ongoing (Allie Lorenzo RN) Outcome: Patient will Report Any Altered Sensation or Pain at Site of Skin Impairment (Allie Lorenzo RN) Status: Ongoing (Allie Lorenzo RN) Outcome: Patients Incisions and Wounds will be without Signs or Symptoms of Infection (Allie Lorenzo RN) Status: Ongoing (Allie Lorenzo RN) Outcome: Patient will Demonstrate Understanding of Plan to Heal Skin and Prevent Reinjury and Verbalize Risk Factors (Allie Lorenzo RN) Status: Ongoing (Allie Lorenzo RN) State: Risk For (Allie Lorenzo RN) Related To: Compromised Health Status; Apprehension Related to [place] Care (Allie Lorenzo RN) Goal(s): Parents will Demonstrate Progressive Parenting Behaviors (Allie Lorenzo RN) Interventions: Assess for Adequacy of Support Systems; Observe and Encourage Patient/Family Infant Attachment and Bonding Activities and Provide Feedback; Assess Patient/Family Understanding of 's Condition and Provide Accurate Information About Condition, Treatment and Prognosis; Assess for Patient/Family Behaviors that May Indicate Lack of Attachment; Provide a Safe Non-judgmental Environment for Patient/Family to Discuss Concerns; Promote Patient/Family Cohesiveness by Encouraging Discussion and Problem Solving; Committee Member Referral as Indicated (Allie Lorenzo RN) Outcome: Patient/Family will Discuss Their Fears and the Possibility of Difficulties with Parenting (Allie Lorenzo RN) Status: Ongoing (Allie Lorenzo RN) Outcome: Patient/Family will Exhibit Appropriate Bonding Behaviors with Infant (Allie Lorenzo RN) Status: Ongoing (Allie Lorenzo RN) Outcome: Patient/Family will Verbalize Positive Feelings and Demonstrate Affection and Caring Toward Infant (Allie Lorenzo RN) Status: Ongoing (Allie Lorenzo RN) State: Risk For (Allie Lorenzo RN) Related To: ; (Allie Lorenzo RN) Goal(s): Patient will have an Intake of Nutrients Sufficient to Meet Metabolic Needs (Allie Lorenzo RN) Interventions: Nutritional Screening and Assessment per Hospital Policy; Consult Recreational Sports Director for Further Assessment and Recommendations Regarding Food Preferences and Nutritional Support; Allow Patient to Plan and Order Diet when Possible; Monitor Laboratory Values That Indicate Nutritional Well-being; Consult Fuel Oil Truck Driver for Nutritional Support Regarding Requirements; Document Actual Weight Initially and Weekly (Do Not Estimate); Encourage Patient Participation in Maintaining a Food Log as Indicated; Educate Patient on the Importance of Maintaining an Adequate Caloric Intake (Allie Lorenzo RN) Outcome: Patient will Receive Adequate Calories and Fluid Volume to Meet Metabolic Needs (Allie Lorenzo RN) Status: Ongoing (Allie Lorenzo RN) Outcome: Patient will Select Foods or Meals that Support Adequate Nutrition (Allie Lorenzo RN) Status: Ongoing (Allie Lorenzo RN) State: Not Applicable (Allie Lorenzo RN) State: Not Applicable (Allie Lorenzo RN)
[2016-05-07 07:28] LABS: HEMOGLOBIN 12.3 g/dL (12.0-15.5); HGB HCT DIFFERENCE 0.9; MEAN CORPUSCULAR HEMOGLOBIN 30.9 pg (27.0-33.4); MEAN CORPUSCULAR HGB CONC 34.1 g/dL (32.0-36.0); MEAN CORPUSCULAR VOLUME 91 fl (80-97); RED BLOOD COUNT 3.97 10^6/uL (3.72-5.28); RED CELL DISTRIBUTION WIDTH 13.8 % (11.5-14.0); WHITE BLOOD COUNT 14.4 10^3/uL (4.0-10.5)
[2016-05-07] MEDS: FERROUS SULFATE 325 MG TABLET PO SCH ×2 (10:14→17:51)
[2016-05-07] MEDS: PRENATAL VITAMIN W-O CA NO5/FE FUMARATE/FA CAPSULE PO SCH (10:14)
[2016-05-07] MEDS: FAMOTIDINE 20 MG TABLET PO SCH ×2 (10:15→21:10)
[2016-05-07] MEDS: SENNOSIDES/DOCUSATE 8.6-50 MG 1 EACH TABLET PO SCH (10:15)
[2016-05-07] MEDS: DOCUSATE SODIUM 100 MG CAPSULE PO SCH ×2 (10:15→17:51)
[2016-05-07] MEDS ORDERED: LIDOCAINE 2% JELLY 5 ML TUBE ONE ×2 (10:41→15:18)
--- NOTE | 2016-05-07 12:23 | PDOC PROGRESS REPORT ---
Subjective-OB Subjective: Post Delivery Day: 25 year old. Denies any needs at this time pt sitting up in bed well ff@[id number] moderate lochia well offers no complaints anticipate d/c in am Physical Exam (OB) Vital Signs: Temp Pulse Resp BP Pulse Ox 98.3 F 70 16 108/62 100 05/07/16 08:09 05/07/16 08:09 05/07/16 08:09 05/07/16 08:09 05/07/16 08:09 Intake & Output 05/06/16 05/07/16 05/08/16 06:59 06:59 06:59 Weight 88.6 kg - PIH/Pre-Eclampsia Clonus: Negative Headache: Absent Epigastric Pain: No Visual Changes: No - Lochia Lochia Amount: Scant < 10 ml Lochia Color: Rubra/Red - Abdomen Description: Tender, Soft Hernia Present: No Fundal Description: Firm, Midline Fundal Height: u/u - u/2 Objective-Diagnostic Laboratory: 05/07/16 07:15 05/06/16 05/07/16 14:30 07:15 WBC 14.4 H RBC 3.97 Hgb 12.3 Hct 36.0 MCV 91 MCH 30.9 MCHC 34.1 RDW 13.8 Plt Count 157 Urine Color STRAW Urine Appearance CLEAR Urine pH 7.0 Ur Specific [place] 1.004 Urine Protein NEGATIVE Urine Glucose (UA) NEGATIVE Urine Ketones NEGATIVE Urine Blood LARGE H Urine Nitrite NEGATIVE Ur Leukocyte Esterase TRACE H
[2016-05-08] MEDS: IBUPROFEN 800 MG TABLET PO SCH (06:10)
[2016-05-08 08:40] VITALS: BP 129/81
--- NOTE | 2016-05-08 10:25 | PDOC PROGRESS REPORT ---
Subjective-OB Subjective: Post Delivery Day: 25 year old. Denies any needs at this time. Ready to go home. Physical Exam (OB) Vital Signs: Temp Pulse Resp BP Pulse Ox 98.2 F 94 16 129/81 H 99 05/08/16 08:39 05/08/16 08:39 05/08/16 08:39 05/08/16 08:39 05/08/16 08:39 - PIH/Pre-Eclampsia Clonus: Negative Headache: Absent Epigastric Pain: No Visual Changes: No - Lochia Lochia Amount: Small 10-25 ml Lochia Color: Rubra/Red - Abdomen Description: Soft, Round Hernia Present: No Bowel Sounds: Normoactive Flatus Presence: Present Stool: No Fundal Description: Firm, Midline Fundal Height: u/u - u/2 Objective-Diagnostic Laboratory: 05/07/16 07:15
--- NOTE | 2016-05-08 10:31 | PDOC DISCHARGE SUMMARY ---
Final Diagnosis Discharge Date: 05/08/16 - Final Diagnosis (1) Delivery normal Is this a current diagnosis for this admission?: Yes (2) History of depression Is this a current diagnosis for this admission?: Yes (3) Is this a current diagnosis for this admission?: Yes Discharge Data - Discharge Medication Home Medications: Nrl191/Iron Fumarate/FA/Dss [ 19 Tablet] 1 each PO DAILY 08/04/14 Gestational Age: 40.5 wks Reason(s) for Admission: Onset of Labor Intrapartum Procedure(s): Spontaneous Vaginal Delivery Complication(s): Laceration-Periurethral - [place]vinger Data Baby 1 Male at 1 minute: 8 at 5 minutes: 8 Weight: 3.714 kg Home with Mother: Yes Complications: No - Diagnosis Test Laboratory: Temp Pulse Resp BP Pulse Ox 98.2 F 94 16 129/81 H 99 05/08/16 08:39 05/08/16 08:39 05/08/16 08:39 05/08/16 08:39 05/08/16 08:39 05/06/16 05/06/16 05/07/16 05:06 14:30 07:15 RBC 4.10 3.97 Hgb 12.4 12.3 Hct 36.9 36.0 Urine Opiates Screen NEGATIVE - Discharge information/Instructions Discharge Activity: Activity As Tolerated, Balance Activity w/Rest, Pelvic Rest , Slowly Increase Activity, No tub bath Discharge Diet: Regular Disposition: HOME, SELF-CARE Follow up with: [facility]: 4, Weeks
[2016-05-08] MEDS: DOCUSATE SODIUM 100 MG CAPSULE PO SCH (10:48)
[2016-05-08] MEDS: FERROUS SULFATE 325 MG TABLET PO SCH (10:48)
[2016-05-08] MEDS: PRENATAL VITAMIN W-O CA NO5/FE FUMARATE/FA CAPSULE PO SCH (10:48)
[2016-05-08] MEDS: SENNOSIDES/DOCUSATE 8.6-50 MG 1 EACH TABLET PO SCH (10:48)
[2016-05-08] MEDS: FAMOTIDINE 20 MG TABLET PO SCH (10:48)
== END 2016-05-08 11:35 | disposition home or self-care (01) | DRG 775 ==
LOC: LC 04:06 → LR 04:52 → 2S 07:41
PROVIDERS: ADMIT Obstetrics & Gynecology; ATTEND Obstetrics & Gynecology
PROC: 10E0XZZ Delivery of Products of Conception, External Approach (ICD-10-PCS; principal; 2016-05-06)
PROC: 0UQMXZZ Repair Vulva, External Approach (ICD-10-PCS; 2016-05-06)
PROC: 4A1HXCZ Monitoring of Products of Conception, Cardiac Rate, External Approach (ICD-10-PCS; 2016-05-06)
DX: O62.3 Precipitate labor (principal); O76 Abnormality in fetal heart rate and rhythm complicating labor and delivery; O71.82 Other specified trauma to perineum and vulva; Z3A.40 40 weeks gestation of pregnancy; Z37.0 Single live birth
CPT/HCPCS: 36415; 80307; 81005; 85025; 85027; 86592; 86850; 86900; 86901; J2590; J3490